=== PATIENT | male | born 1965 | race Hispanic/Latino ===

== ENCOUNTER 2016-12-02 06:47 | Emergency (ER) | payer OTHER ==
[~2016-12-02] VITALS: Ht 172.7 cm; Wt 88.6 kg
[~2016-12-02 06:47] MED LIST: CYCL10TA9 PO; HYDR-4003 PO
[2016-12-02 06:56] VITALS: BP 123/77; PULSE 76; RESP 16; O2SAT 100
--- NOTE | 2016-12-02 08:48 | ED.REPORT ---
HPI-Eye Problem Date of Service Dec 02, 2016 ED Provider: Jackson Mahoney MD 51 year old [place]vian-speaking male presents to the ER complaining of four days of left eye pain secondary to foreign body. 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 His eye has been red and irritated since. Patient does not wear contacts, vision is normal. Nursing Notes Stated Complaint: LEFT EYE Chief Complaint: Eye Nursing Notes Reviewed: Yes Allergies: Coded Allergies: No Known Allergies (Unverified , 09/16/15) Scheduled Erythromycin Ophth Oint (Erythromycin Ophth Oint) 3.5 Gm Oint...g. 1 APPL OP QID Scheduled PRN Cyclobenzaprine (Cyclobenzaprine) 10 Mg Tablet 10 MG PO BID PRN PRN Spasm Hydrocodone-Acetaminophen 5-325 mg (Hydrocodone-Acetaminophen 5-325 mg) 1 Each Tablet 1 TABLET PO QID PRN PRN For Pain General Time Seen by MD: 08:42 Chief Complaint Left eye affected, Pain, Redness Hx Obtained From: Patient Arrived By: Walk-in Sudden in Onset?: No Onset Occurred: 4 days ago Symptom Duration: Since onset Progression Since Onset: Unchanged Caused by: Foreign body in eye Context: Occurred at: Workplace Location: : Eye left Quality: Painful Severity: Current: Moderate Severity: Maximum: Moderate Pertinent Negative: Pt denies other symptoms Related History: Denies: Contact lens use Past Medical History Past Medical History healthy male Past Surgical History denies Smoking History Unknown if Ever Smoker Ambulatory Status Independent Review of Systems Constitutional: Denies: Chills, Fever Eyes: Reports: Eye pain left, Redness left, Denies: Blurred bilateral, Discharge bilateral, Eye pain right, Redness right , Visual loss bilateral Complete sys rev & neg: except as marked. Physical Exam Initial Vital Signs Vital Signs (First) Date Time Temp Pulse Resp B/P Pulse Ox O2 Delivery O2 Flow Rate FiO2 12/02/16 06:56 36.4 76 16 123/77 100 Room Air Initial VS: Reviewed General / Const: Well-developed, Well-nourished Neck: Supple, Non-tender, Full range of motion Abdomen / GI: Soft, Non-tender, No guarding, No rebound, No distention Extremities: Vascular intact, Neuro intact, No swelling, No tenderness Skin: Warm, Dry, No cyanosis Neurologic: Alert, Oriented, Nonfocal Psychiatric: Mood/affect normal, Behavior normal, Normal thought content Head / Eyes: Normocephalic, PERRL, EOMI Pupils: Positive: Blown L, Blown R, Dilated L, Dilated R, Nonreactive L, Nonreactive R Cornea/Anterior Chamber: Negative: Abrasion L..., Fluorescein uptake L... Conjunctiva / Sclera: Positive: Pterygium L Procedures Slit Lamp Exam Removed 1 small fiber of fiberglass Pterygium, Left Time: 09:09 Procedure Performed by: ED physician Which Eye: Left Dilating Agent & Anesthesia: Anesthesia: Tetracaine Eyelid / Conjunctiva / Sclera: Eyelid(s) normal, Conjunctiva normal, Sclera normal Cornea/Ant Chamber/Iris/Lens: Corneal abrasion Re-Eval/Medical Decision Med Decision/Clinical Course 51 year old [place]ian-speaking male presents to the ER complaining of four days of left eye pain secondary to foreign body. 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 His eye has been red and irritated since. Patient does not wear contacts, vision is normal. Emergency department the patient is afebrile stable vital signs and examination as above. With lamp examination was performed after application of tetracaine drops and fluorescein. A foreign body consistent with fiberglass was removed from the eye. There were several very superficial regions corneal abrasion present. No additional foreign bodies were located. Patient reported complete resolution of his symptoms with application of tetracaine and removal of foreign body. Visual acuity remained normal. The patient has been prescribed a course of erythromycin ophthalmic ointment. He will follow up with his primary care physician in the next week. Follow-up and return precautions were reviewed in detail and he is discharged in good condition. Re-Evaluation/Progress : Time of Eval: 09:09 Re-Evaluation/Progress Note: Completed eye examination. Discussed plan to discharge. Patient is amenable to the plan. Return precautions given. All other questions addressed. Counseled Regarding: Diagnosis, Need for follow-up, When/why to return to ED Discharge & Departure Primary Impression: Foreign body in eye Encounter type: initial encounter Laterality: left Qualified Code: T15.92XA - Foreign body on external eye, part unspecified, left eye, initial encounter Additional Impressions: Pterygium Laterality: left Qualified Code: H11.002 - Unspecified pterygium of left eye Corneal abrasion Encounter type: initial encounter Laterality: left Qualified Code: S05.02XA - Injury of conjunctiva and corneal abrasion without foreign body, left eye, initial encounter Pain, eye, left Disposition: Home Discharge Condition All VS Reviewed: Yes Condition: Stable Patient Instructions: Corneal Abrasion (ED) Additional Instructions: Thank you for seeking care at emergency room. It is difficult for us to make definitive diagnoses in the ED but we believe that you are experiencing a pterygium and corneal abrasion. Our primary goal today in the ED was to evaluate you for any life-threatening conditions. Your evaluation was reassuring. You will be discharged with a prescription for erythromycin ointment. Please use as directed. You should follow-up with your primary doctor this week. You should return to the ED immediately if you develop worsening pain, worsening redness of the eye, or any other concerning signs or symptoms. Thank you for letting us partake in your care today. Referrals: [facility]OPCP (PCP) [facility] Attestation Portions of this note were transcribed by Jhony Dash. I, Dr. Mahoney, personally performed the history, physical exam and medical decision-making; I reviewed and confirmed the accuracy of the information in the transcribed note. Signed by: Hilda Boudreaux, 12/02/2016 and 09:20 Jackson Mahoney MD Dec 02, 2016 08:47 JHONY DASH Dec 02, 2016 09:20
[2016-12-02] MEDS ORDERED: Fluorescein 0.6 mg Ophthalmic Strip BOTH_EYES ONE (08:50)
[2016-12-02] MEDS ORDERED: Tetracaine 0.5% 4 mL Ophthalmic Solution BOTH_EYES ONE (08:50)
[2016-12-02] MEDS ORDERED: ERYT1OIN7 OP (09:07)
== END 2016-12-02 09:41 | disposition home or self-care (01) ==
LOC: SED 06:47
DX: T15.92XA Foreign body on external eye, part unspecified, left eye, initial encounter (principal); S05.02XA Injury of conjunctiva and corneal abrasion without foreign body, left eye, initial encounter; T65.831A Toxic effect of fiberglass, accidental (unintentional), initial encounter; X58.XXXA Exposure to other specified factors, initial encounter; Y92.59 Other trade areas as the place of occurrence of the external cause; Y93.H3 Activity, building and construction; Y99.0 Civilian activity done for income or pay; H11.002 Unspecified pterygium of left eye